=== PATIENT | female | born 2000 | race African-American/Black ===

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

== ENCOUNTER 2020-12-07 19:39 | Emergency (ER) | payer OTHER ==
[2020-12-07 19:49] VITALS: BP 144/85; PULSE 86; TEMP 98.3; BMI 34.7
[2020-12-07] MEDS ORDERED: AMOXICILLIN 500 MG CAPSULE (FP) PO ONE (19:57)
[2020-12-07] MEDS ORDERED: IBUPROFEN 600 MG TABLET (FP) PO ONE ×2 (19:57→19:58)
== END 2020-12-07 20:36 | disposition home or self-care (01) ==
LOC: JERFT 19:39
DX: K08.89 Other specified disorders of teeth and supporting structures (principal); K02.9 Dental caries, unspecified
CPT/HCPCS: 99283-25

== ENCOUNTER 2021-11-18 08:10 | Emergency (ER) | payer OTHER ==
[2021-11-18 08:24] VITALS: BP 128/79; PULSE 108; RESP 18; TEMP 98.4; BMI 37.6
[2021-11-18] MEDS ORDERED: TETRACAINE 0.5% HCL 0.6ML DROPPER.BOTTLE OS ONE (08:51)
[2021-11-18] MEDS ORDERED: FLUORESCEIN NA 1 EA STRIP OS ONE (08:51)
[2021-11-18] MEDS ORDERED: FLUORESCEIN NA 1 EA STRIP ONE (08:53)
[2021-11-18] MEDS ORDERED: TETRACAINE 0.5% OPHTH SOLN 2 ML BOTTLE ONE (08:54)
== END 2021-11-18 09:27 | disposition home or self-care (01) ==
LOC: JER 08:10
DX: S05.02XA Injury of conjunctiva and corneal abrasion without foreign body, left eye, initial encounter (principal); Y99.8 Other external cause status
CPT/HCPCS: 99283-25